=== PATIENT | male | born 1990 | race Two or more races ===

== ENCOUNTER 2020-08-15 04:14 | Emergency (ER) | payer OTHER ==
[~2020-08-15] VITALS: Ht 180.3 cm; Wt 126.0 kg
[2020-08-15 05:59] VITALS: BP 142/80
== END 2020-08-15 06:18 | disposition home or self-care (01) ==
LOC: ER 04:14
DX: S60.362A Insect bite (nonvenomous) of left thumb, initial encounter (principal); W57.XXXA Bitten or stung by nonvenomous insect and other nonvenomous arthropods, initial encounter; Y93.89 Activity, other specified; Y92.89 Other specified places as the place of occurrence of the external cause; Y99.8 Other external cause status
CPT/HCPCS: 99281; 99283